=== PATIENT | male | born 1970 | race African-American/Black ===

== ENCOUNTER 2021-05-06 11:57 | Emergency (ER) | payer OTHER ==
--- NOTE | 2021-05-06 12:15 | ER ---
Nurse's Notes [facility] Name: Dominik Sierra Age: 50 yrs Sex: Male : 1970 Arrival Date: 05/06/2021 Time: 12:01 Bed Waiting Private MD: Diagnosis: Assessment: 05/06 12:14 Reassessment: [facility]. vg1 ED Course: 12:01 Patient arrived in ED. ds1 Administered Medications: No medications were administered Outcome: 12:15 Patient left the ED. vg1 Signatures: Brittney Chairez ds1 Elda Godinez, RN RN vg1
== END 2021-05-06 12:15 | disposition left against medical advice (07) ==
LOC: ER 11:57
DX: Z02.9 Encounter for administrative examinations, unspecified (principal)